=== PATIENT | female | born 1955 | race Caucasian/White ===

== ENCOUNTER 2016-07-20 17:53 | Outpatient (CLI) | payer OTHER ==
--- NOTE | 2016-07-20 18:37 | Diagnostic Imaging Report ---
[facility] [address] [facility] [address] Report Submission Date: July 20, 2016 6:23:42 PM CDT Patient Study Name: FABIAN CHATTERJEE Date: July 20, 2016 6:03:23 PM CDT MRN: [id number] Modality Type: CR Gender: F Description: LOWER EXTREMITY : 55 Institution: [facility] Physician: OSCAR GARCIA - FUENTSE Left knee, 3 views History: PAIN INFERIOR TO PATELLA. NO KNOWN INJURY Findings: The osseous structures are intact without acute fracture. The joint space and alignment are normal. There is no soft tissue swelling. No joint effusion is present Impression: 1. No acute osseous abnormality. Electronically signed on July 20, 2016 6:23:42 PM CDT by: Daniel HOFFMAN
== END 2016-07-20 17:54 ==
LOC: RAD 17:53
PROVIDERS: ATTEND Family Medicine
DX: M25.562 Pain in left knee (principal)
CPT/HCPCS: 73562

== ENCOUNTER 2017-02-15 13:59 | Outpatient (CLI) | payer OTHER ==
[2017-02-15 14:50] LABS: BASOPHILS % 0.8 (0.0-1.5); EOSINOPHILS % 2.3 % (0.0-6.8); MEAN CORPUSCULAR VOLUME 90.6 fl (80.0-100.0); MONOCYTES % 5.1 % (0.0-11.0); NEUTROPHILS # 4.2 # k/uL (1.4-7.7)
[2017-02-15 15:24] LABS: eGFR (African) > 60; eGFR (Non-African) > 60
== END 2017-02-15 14:10 ==
LOC: LAB 13:59
PROVIDERS: ATTEND Orthopaedic Surgery
DX: M22.42 Chondromalacia patellae, left knee (principal); S83.204A Other tear of unspecified meniscus, current injury, left knee, initial encounter
CPT/HCPCS: 36415; 80053; 85025